=== PATIENT | male | born 1965 | race Caucasian/White ===

== ENCOUNTER 2016-08-18 18:35 | Inpatient (IN) | payer BC ==
[~2016-08-18] VITALS: Ht 175.3 cm; Wt 96.0 kg
[~2016-08-18 18:35] MED LIST: ACTOS30 MG PO; FLEXERIL5 MG PO; GLIPIZIDE10 MG PO; LEVO-T75 MCG PO; LOVASTATIN20 MG PO; METFORMIN HCL500 M1 PO; METFORMIN HCL500 MG PO; MOTRIN800 MG PO; NAPROXEN500 MG PO; PERCOCET 5/31 TABLET PO; PIOGLITAZONE HC45 MG PO; PRINIVIL20 MG PO
[2016-08-18 19:09] LABS: POINT-OF-CARE METER ID UU14100415; POINT-OF-CARE USER ID HMLKAV
[2016-08-18 19:51] LABS: CHLORIDE 104 mEq/L (99-109); POTASSIUM 4.3 mEq/L (3.7-5.4); SODIUM 136 mEq/L (136-147)
[2016-08-18 19:52] LABS: MAGNESIUM 1.8 mg/dL (1.3-2.7)
[2016-08-18 19:53] LABS: GLUCOSE 358 mg/dL (70-99)
[2016-08-18 19:55] LABS: ANION GAP 13 MEQ/L (2-14)
[2016-08-18 19:56] LABS: D-DIMER ELISA 0.16 mg/L FEU (< 0.57); PROTHROMBIN TIME 10.2 (9.2-11.2); PTT 26.2 (25-32)
[2016-08-18 19:57] LABS: GFR ESTIMATE (CALCULATED) > 59 mL/min/
[2016-08-18 19:58] LABS: UREA NITROGEN (BUN) 21 mg/dL (9-23)
[2016-08-18 19:59] LABS: EOSINOPHIL (%) 0.3 % (0-5); HEMATOCRIT 44.3 % (38.0-50.0); IMMATURE GRANULOCYTE (%) 0.7 % (0.0-0.7); IMMATURE GRANULOCYTE COUNT 0.1 K/uL; LYMPHOCYTE COUNT 1.5 K/uL (1.0-2.8); MCH 29.7 PG (29.0-34.0); MCHC 34.1 G/DL (30.0-36.0); MCV 87.2 FL (86-99); MEAN PLAT.VOLUME 9.7 uM^3 (9.0-12.4); MONOCYTE (%) 3.5 % (3-12); MONOCYTE COUNT 0.3 K/uL (0-0.8); NEUTROPHIL (%) 78.5 % (45-76); NEUTROPHIL COUNT 7.1 K/uL (1.8-6.4); PLATELET COUNT 213 K/uL (156-360); RBC DIS.WIDTH-CV 13.5 % (11.8-14.6); RBC DIS.WIDTH-SD 42.9 % (39-53); RED BLOOD COUNT 5.08 M/uL (4.00-5.50)
[2016-08-18 20:03] LABS: TROP-I INTERPRETATION NEGATIVE; TROPONIN-I < 0.01 ng/mL (0.0-0.30)
[2016-08-18] MEDS ORDERED: METOPROLOL TART50 MG PO (22:07)
[2016-08-18] MEDS ORDERED: EXCEDRIN MIGRA1 EAC3 PO (22:08)
[2016-08-18] MEDS ORDERED: ACTOS30 MG PO (22:09)
[2016-08-19 01:20] VITALS: BP 150/86
[2016-08-19 02:03] LABS: TROP-I INTERPRETATION NEGATIVE; TROPONIN-I 0.12 ng/mL (0.0-0.30)
[2016-08-19 08:19] VITALS: BP 123/75
[2016-08-19 09:21] LABS: ANION GAP 7 MEQ/L (2-14); CHLORIDE 100 MEQ/L (99-109); GFR ESTIMATE (CALCULATED) > 59 mL/min/; GLUCOSE 231 mg/dL (70-99); POTASSIUM 3.8 MEQ/L (3.7-5.4); SAMPLE HEMOLYSIS CHECK 0; SAMPLE ICTERIC CHECK 0; SAMPLE LIPEMIA CHECK 1; SODIUM 134 MEQ/L (136-147); UREA NITROGEN (BUN) 13 mg/dL (9-23)
[2016-08-19 09:33] LABS: TROP-I INTERPRETATION INDETERMINATE; TROPONIN-I 0.35 ng/mL (0.0-0.30)
[2016-08-19 12:03] VITALS: BP 116/70
[2016-08-19 12:26] LABS: POINT-OF-CARE METER ID UU13113700
[2016-08-19 15:57] VITALS: BP 118/71
[2016-08-19 20:00] VITALS: BP 125/69
[2016-08-19 21:39] LABS: POINT-OF-CARE METER ID UU13113831
[2016-08-19 23:49] VITALS: BP 109/70
[2016-08-20 04:47] VITALS: BP 129/77
[2016-08-20 07:17] VITALS: BP 120/77
[2016-08-20 07:31] LABS: HEMATOCRIT 43.9 % (38.0-50.0); MCH 29.6 PG (29.0-34.0); MCHC 33.9 G/DL (30.0-36.0); MCV 87.3 FL (86-99); MEAN PLAT.VOLUME 9.7 uM^3 (9.0-12.4); PLATELET COUNT 203 K/uL (156-360); RBC DIS.WIDTH-CV 13.9 % (11.8-14.6); RBC DIS.WIDTH-SD 43.5 % (39-53); RED BLOOD COUNT 5.03 M/uL (4.00-5.50)
[2016-08-20 07:32] LABS: WHITE BLOOD COUNT 5.8 K/uL (4.1-10.2)
[2016-08-20 07:55] VITALS: BP 125/78
[2016-08-20 08:37] LABS: POINT-OF-CARE METER ID UU13113831
[2016-08-20 11:26] VITALS: BP 129/74
[2016-08-20 21:32] VITALS: BP 110/64
[2016-08-20 21:48] LABS: POINT-OF-CARE METER ID UU13113698
[2016-08-20 23:04] VITALS: BP 97/54
[2016-08-21 04:41] VITALS: BP 107/60
[2016-08-21 06:43] LABS: EOSINOPHIL (%) 1.7 % (0-5); EOSINOPHIL COUNT 0.1 K/uL (0-0.3); HEMATOCRIT 44.5 % (38.0-50.0); IMMATURE GRANULOCYTE (%) 1.1 % (0.0-0.7); IMMATURE GRANULOCYTE COUNT 0.1 K/uL; LYMPHOCYTE COUNT 1.4 K/uL (1.0-2.8); MCH 29.4 PG (29.0-34.0); MONOCYTE (%) 9.8 % (3-12); MONOCYTE COUNT 0.5 K/uL (0-0.8); NEUTROPHIL (%) 58.2 % (45-76); NEUTROPHIL COUNT 2.7 K/uL (1.8-6.4); RBC DIS.WIDTH-CV 13.9 % (11.8-14.6); RBC DIS.WIDTH-SD 45.2 % (39-53); WHITE BLOOD COUNT 4.7 K/uL (4.1-10.2)
[2016-08-21 07:00] VITALS: BP 129/78
[2016-08-21 07:07] LABS: ANION GAP 9 MEQ/L (2-14); CHLORIDE 102 MEQ/L (99-109); GFR ESTIMATE (CALCULATED) > 59 mL/min/; GLUCOSE 187 mg/dL (70-99); POTASSIUM 4.4 MEQ/L (3.7-5.4); SAMPLE HEMOLYSIS CHECK 0; SAMPLE ICTERIC CHECK 0; SAMPLE LIPEMIA CHECK 0; SODIUM 138 MEQ/L (136-147); UREA NITROGEN (BUN) 10 mg/dL (9-23)
[2016-08-21 07:35] LABS: POINT-OF-CARE METER ID UU13113698
[2016-08-21 08:15] LABS: MEAN PLAT.VOLUME 10.6 uM^3 (9.0-12.4); PLAT.SUFFICIENCY DECREASED; USER ID CCL
[2016-08-21 08:16] LABS: PLATELET COUNT 27 K/uL (156-360)
[2016-08-21 11:30] VITALS: BP 121/78
[2016-08-21 13:08] LABS: HEMATOCRIT 42.5 % (38.0-50.0); MCH 29.5 PG (29.0-34.0); MCHC 33.6 G/DL (30.0-36.0); MCV 87.8 FL (86-99); RBC DIS.WIDTH-CV 13.9 % (11.8-14.6); RBC DIS.WIDTH-SD 44.5 % (39-53); RED BLOOD COUNT 4.84 M/uL (4.00-5.50); WHITE BLOOD COUNT 5.4 K/uL (4.1-10.2)
[2016-08-21 13:56] LABS: MEAN PLAT.VOLUME 10.8 uM^3 (9.0-12.4)
[2016-08-21 13:57] LABS: PLATELET COUNT 27 K/uL (156-360)
[2016-08-21 19:57] LABS: HEMATOCRIT 44.4 % (38.0-50.0); MCH 29.9 PG (29.0-34.0); MCHC 34.2 G/DL (30.0-36.0); MCV 87.2 FL (86-99); RBC DIS.WIDTH-CV 13.7 % (11.8-14.6); RBC DIS.WIDTH-SD 43.6 % (39-53); RED BLOOD COUNT 5.09 M/uL (4.00-5.50)
[2016-08-21 20:09] LABS: MEAN PLAT.VOLUME 10.7 uM^3 (9.0-12.4); PLATELET COUNT 36 K/uL (156-360)
[2016-08-21 20:13] LABS: INTER. NORMALIZED RATIO 1.1; PROTHROMBIN TIME 10.7 (9.2-11.2); PTT 28.9 (25-32)
[2016-08-21 20:19] LABS: D-DIMER LATEX NEGATIVE
[2016-08-21 20:26] LABS: SCHISTOCYTES NONE SEEN
[2016-08-21 20:32] LABS: ALKALINE PHOSPHATASE 75 IU/L (3-129); DIRECT BILIRUBIN 0.1 mg/dL (0.0-0.3); TOTAL BILIRUBIN 0.5 MG/DL (0.0-1.0)
[2016-08-21 20:45] LABS: FIBRINOGEN 331 MG/DL (160-450)
[2016-08-21 21:20] VITALS: BP 131/88
[2016-08-21 21:28] LABS: POINT-OF-CARE METER ID UU13113698
[2016-08-22 00:48] VITALS: BP 110/59
[2016-08-22 04:01] VITALS: BP 124/80
[2016-08-22 07:03] LABS: HEMATOCRIT 43.2 % (38.0-50.0); MCH 29.9 PG (29.0-34.0); MCV 87.8 FL (86-99); RBC DIS.WIDTH-CV 13.8 % (11.8-14.6); RBC DIS.WIDTH-SD 43.9 % (39-53); RED BLOOD COUNT 4.92 M/uL (4.00-5.50); WHITE BLOOD COUNT 5.6 K/uL (4.1-10.2)
[2016-08-22 07:55] VITALS: BP 128/78
[2016-08-22 08:07] LABS: MEAN PLAT.VOLUME 10.2 uM^3 (9.0-12.4)
[2016-08-22 08:15] LABS: PLATELET COUNT 51 K/uL (156-360)
[2016-08-22 11:26] LABS: HEMATOCRIT 43.9 % (38.0-50.0); MCH 29.8 PG (29.0-34.0); MCHC 34.2 G/DL (30.0-36.0); MCV 87.3 FL (86-99); RBC DIS.WIDTH-CV 13.8 % (11.8-14.6); RBC DIS.WIDTH-SD 43.9 % (39-53); RED BLOOD COUNT 5.03 M/uL (4.00-5.50); WHITE BLOOD COUNT 6.2 K/uL (4.1-10.2)
[2016-08-22 11:29] VITALS: BP 114/73
[2016-08-22 11:42] LABS: POINT-OF-CARE METER ID UU14174216; POINT-OF-CARE USER ID NUTSLF44
[2016-08-22 13:47] LABS: MEAN PLAT.VOLUME 10.4 uM^3 (9.0-12.4); PLATELET COUNT 50 K/uL (156-360)
[2016-08-22 14:46] LABS: Heparin Induced Plt Ab Negative (Negative)
[2016-08-22 16:01] LABS: UFH SRA Result Negative (Negative)
[2016-08-22 16:11] VITALS: BP 139/78
[2016-08-22 17:40] LABS: POINT-OF-CARE USER ID NUTSLF44
[2016-08-22 19:28] VITALS: BP 135/79
[2016-08-22 19:39] LABS: HEMATOCRIT 46.6 % (38.0-50.0); MCH 30.1 PG (29.0-34.0); MCHC 34.5 G/DL (30.0-36.0); MCV 87.3 FL (86-99); RBC DIS.WIDTH-CV 13.7 % (11.8-14.6); RBC DIS.WIDTH-SD 43.6 % (39-53); RED BLOOD COUNT 5.34 M/uL (4.00-5.50)
[2016-08-22 19:40] LABS: MEAN PLAT.VOLUME 10.8 uM^3 (9.0-12.4); PLATELET COUNT 71 K/uL (156-360)
[2016-08-23 01:35] VITALS: BP 106/70
[2016-08-23 04:07] VITALS: BP 134/79
[2016-08-23 06:33] LABS: HEMATOCRIT 45.2 % (38.0-50.0); MCHC 34.1 G/DL (30.0-36.0); MCV 87.9 FL (86-99); MEAN PLAT.VOLUME 10.8 uM^3 (9.0-12.4); PLATELET COUNT 76 K/uL (156-360); RBC DIS.WIDTH-CV 13.6 % (11.8-14.6); RED BLOOD COUNT 5.14 M/uL (4.00-5.50); WHITE BLOOD COUNT 6.2 K/uL (4.1-10.2)
[2016-08-23 06:57] LABS: GFR ESTIMATE (CALCULATED) > 59 mL/min/; UREA NITROGEN (BUN) 17 mg/dL (9-23)
[2016-08-23 07:35] LABS: POINT-OF-CARE METER ID UU14174216
[2016-08-23 08:44] VITALS: BP 125/74
[2016-08-23] MEDS ORDERED: CLOPIDOGREL75 MG PO (09:16)
[2016-08-23] MEDS ORDERED: ATORVASTATIN CA80 MG PO (09:16)
[2016-08-23] MEDS ORDERED: METOPROLOL TART50 MG PO (09:17)
[2016-08-23] MEDS ORDERED: ASPIR-LOW81 MG PO (09:17)
[2016-08-23] MEDS ORDERED: NITROSTAT0.4 MG SL (09:17)
[2016-08-23 11:07] VITALS: BP 119/85
== END 2016-08-23 11:40 | disposition home or self-care (01) | DRG 247 ==
LOC: EME 18:35 → 5WEST 08-19 00:11 → EDOF 08-19 00:11 → 5WEST 08-19 00:51 → 4EAST 08-20 14:21 → 5WEST 08-20 14:21 → 4EAST 08-20 20:57
PROVIDERS: Emergency Medicine; Family Medicine; Hospitalist; Internal Medicine; Internal Medicine Cardiovascular Disease; Internal Medicine Medical Oncology
DX: I21.4 Non-ST elevation (NSTEMI) myocardial infarction (principal); I25.110 Atherosclerotic heart disease of native coronary artery with unstable angina pectoris; I45.6 Pre-excitation syndrome; D69.59 Other secondary thrombocytopenia; T45.525A Adverse effect of antithrombotic drugs, initial encounter; E11.65 Type 2 diabetes mellitus with hyperglycemia; I10 Essential (primary) hypertension; E78.2 Mixed hyperlipidemia; E03.9 Hypothyroidism, unspecified; Z87.891 Personal history of nicotine dependence; E66.9 Obesity, unspecified; Z68.32 Body mass index [BMI] 32.0-32.9, adult
CPT/HCPCS: 71010; 80048; 80076; 82565; 82948; 83735; 84484; 84520; 85025; 85027; 85347; 85378; 85379; 85384; 85610; 85730; 86022 90; 86850; 86900; 86901; 93005; 99281; 99285; C1725; C1769; C1874; C1887; G0378; J0883; J1170; J1644; J1652; J1815; J2060; J2250; J2405; J3010; J3246; J7030; J7050

== ENCOUNTER 2017-01-26 10:21 | Emergency (ER) | payer OTHER ==
[~2017-01-26] VITALS: Ht 175.3 cm; Wt 102.2 kg
[~2017-01-26 10:21] MED LIST changes: +ASPIR-LOW81 MG PO; +ATORVASTATIN CA80 MG PO; +CLOPIDOGREL75 MG PO; +EXCEDRIN MIGRA1 EAC3 PO; +METOPROLOL TART50 MG PO; +NITROSTAT0.4 MG SL
[2017-01-26 11:24] LABS: HEMATOCRIT 45.7 % (38.0-50.0); MCHC 33.7 G/DL (30.0-36.0); MCV 86.1 FL (86-99); MEAN PLAT.VOLUME 9.4 uM^3 (9.0-12.4); PLATELET COUNT 229 K/uL (156-360); RBC DIS.WIDTH-CV 13.1 % (11.8-14.6); RBC DIS.WIDTH-SD 40.7 % (39-53); RED BLOOD COUNT 5.31 M/uL (4.00-5.50); WHITE BLOOD COUNT 6.2 K/uL (4.1-10.2)
[2017-01-26 11:37] LABS: CHLORIDE 105 mEq/L (99-109); POTASSIUM 4.8 mEq/L (3.7-5.4); SODIUM 138 mEq/L (136-147)
[2017-01-26 11:38] LABS: GLUCOSE 322 mg/dL (70-99)
[2017-01-26 11:40] LABS: ANION GAP 10 MEQ/L (2-14)
[2017-01-26 11:42] LABS: GFR ESTIMATE (CALCULATED) > 59 mL/min/
[2017-01-26 11:43] LABS: TROP-I INTERPRETATION NEGATIVE; TROPONIN-I < 0.01 ng/mL (0.0-0.30); UREA NITROGEN (BUN) 18 mg/dL (9-23)
[2017-01-26 15:09] LABS: TROP-I INTERPRETATION NEGATIVE; TROPONIN-I < 0.01 ng/mL (0.0-0.30)
[2017-01-26 15:55] VITALS: BP 95/66
== END 2017-01-26 15:56 | disposition home or self-care (01) ==
LOC: EME 10:21
PROVIDERS: Nurse Practitioner Family
DX: R07.9 Chest pain, unspecified (principal); E78.5 Hyperlipidemia, unspecified; I10 Essential (primary) hypertension; Z95.5 Presence of coronary angioplasty implant and graft; Z87.891 Personal history of nicotine dependence
CPT/HCPCS: 71020; 80048; 84484; 85027; 93005; 99281; 99284

== ENCOUNTER 2017-02-22 08:24 | Emergency (ER) | payer OTHER ==
[~2017-02-22] VITALS: Ht 175.3 cm; Wt 103.0 kg
[2017-02-22] MEDS ORDERED: FLOXIN OTIC SOLN5 ML LEFT EAR (08:54)
[2017-02-22 09:01] VITALS: BP 115/62
== END 2017-02-22 09:03 | disposition home or self-care (01) ==
LOC: EME 08:24
PROC: 09C1XZZ Extirpation of Matter from Left External Ear, External Approach (ICD-10-PCS; principal; 2017-02-22)
DX: T16.2XXA Foreign body in left ear, initial encounter (principal)
CPT/HCPCS: 99281; 99283

== ENCOUNTER 2017-06-01 09:50 | Day surgery (SDC) | payer OTHER ==
[~2017-06-01] VITALS: Ht 175.3 cm; Wt 103.0 kg
[~2017-06-01 09:50] MED LIST changes: +FLOXIN OTIC SOLN5 ML LEFT EAR; +JARDIANCE10 MG PO; +LANTUS 3 M100 UNITS1 SC
[2017-06-01 10:44] LABS: POINT-OF-CARE METER ID UU13113696
[2017-06-01 13:32] LABS: POINT-OF-CARE METER ID UU13113819
[2017-06-01 15:55] VITALS: BP 120/66
[2017-06-01 17:04] LABS: POINT-OF-CARE METER ID UU13113781; POINT-OF-CARE USER ID NUTSLF44
[2017-06-01 19:46] VITALS: BP 115/59
[2017-06-01 21:24] LABS: POINT-OF-CARE METER ID UU13113698
[2017-06-01 22:40] VITALS: BP 81/47
[2017-06-02 03:50] VITALS: BP 103/62
[2017-06-02 05:24] LABS: EOSINOPHIL (%) 1.3 % (0-5); EOSINOPHIL COUNT 0.1 K/uL (0-0.3); HEMATOCRIT 41.9 % (38.0-50.0); IMMATURE GRANULOCYTE (%) 0.9 % (0.0-0.7); IMMATURE GRANULOCYTE COUNT 0.1 K/uL; INSTRUMENT ABS NEUTROPHIL CT 4.6 K/uL; LYMPHOCYTE COUNT 1.3 K/uL (1.0-2.8); MCH 29.1 PG (29.0-34.0); MCHC 32.7 G/DL (30.0-36.0); MCV 89.1 FL (86-99); MEAN PLAT.VOLUME 9.5 uM^3 (9.0-12.4); MONOCYTE (%) 9.2 % (3-12); MONOCYTE COUNT 0.6 K/uL (0-0.8); NEUTROPHIL (%) 68.3 % (45-76); NEUTROPHIL COUNT 4.6 K/uL (1.8-6.4); PLATELET COUNT 218 K/uL (156-360); RBC DIS.WIDTH-CV 13.2 % (11.8-14.6); RBC DIS.WIDTH-SD 43.1 % (39-53); WHITE BLOOD COUNT 6.7 K/uL (4.1-10.2)
[2017-06-02 05:48] LABS: ANION GAP 6 MEQ/L (2-14); CHLORIDE 105 MEQ/L (99-109); GFR ESTIMATE (CALCULATED) > 59 mL/min/; GLUCOSE 117 mg/dL (70-99); POTASSIUM 4.1 MEQ/L (3.7-5.4); SAMPLE HEMOLYSIS CHECK 0; SAMPLE ICTERIC CHECK 0; SAMPLE LIPEMIA CHECK 0; SODIUM 138 MEQ/L (136-147); UREA NITROGEN (BUN) 17 mg/dL (9-23)
[2017-06-02 07:27] VITALS: BP 106/72
[2017-06-02 07:50] LABS: POINT-OF-CARE METER ID UU13113698; POINT-OF-CARE USER ID ENVKC36
== END 2017-06-02 10:10 | disposition home or self-care (01) ==
LOC: CATH 09:50 → 4EAST 14:02 → 2SOUTH 14:02 → ENRESERV 14:04 → 4EAST 15:25
PROVIDERS: Internal Medicine Cardiovascular Disease
DX: T82.855A Stenosis of coronary artery stent, initial encounter (principal); I25.119 Atherosclerotic heart disease of native coronary artery with unspecified angina pectoris; I10 Essential (primary) hypertension; E78.5 Hyperlipidemia, unspecified; E11.9 Type 2 diabetes mellitus without complications; Z87.891 Personal history of nicotine dependence; R11.2 Nausea with vomiting, unspecified
CPT/HCPCS: 80048; 82948; 85025; 85347; 93005; C1725; C1769; C1874; C1887; G0378; J1644; J1815; J2250; J2405; J2765; J3010; J7030

== ENCOUNTER 2017-12-17 05:10 | Observation (INO) | payer OTHER ==
[~2017-12-17] VITALS: Ht 175.3 cm; Wt 100.7 kg
[~2017-12-17 05:10] MED LIST changes: +BASAGLAR K100 UNIT/1 SC; -LANTUS 3 M100 UNITS1 SC; -PRINIVIL20 MG PO; +ZESTRIL40 MG PO
[2017-12-17 05:48] LABS: HEMATOCRIT 46.5 % (38.0-50.0); HEMOGLOBIN 15.9 G/DL (12.5-16.6); MCH 29.6 PG (29.0-34.0); MCHC 34.2 G/DL (30.0-36.0); MCV 86.6 FL (86-99); PLATELET COUNT 249 K/uL (156-360); RBC DIS.WIDTH-CV 13.9 % (11.8-14.6); RED BLOOD COUNT 5.37 M/uL (4.00-5.50); WHITE BLOOD COUNT 8.5 K/uL (4.1-10.2)
[2017-12-17 05:57] LABS: PTT 28.4 SEC (25-37)
[2017-12-17 06:00] LABS: ALBUMIN 4.5 g/dL (3.2-4.8); CHLORIDE 103 mEq/L (99-109); POTASSIUM 4.5 mEq/L (3.7-5.4); SODIUM 137 mEq/L (136-147)
[2017-12-17 06:03] LABS: GLUCOSE 242 mg/dL (70-99); TOTAL PROTEIN 7.4 g/dL (6.4-8.3)
[2017-12-17 06:05] LABS: TOTAL BILIRUBIN 0.8 mg/dL (0.0-1.0)
[2017-12-17 06:06] LABS: ALKALINE PHOSPHATASE 143 IU/L (3-129)
[2017-12-17 06:07] LABS: CREATININE 1.1 mg/dL (0.6-1.3); GFR ESTIMATE (CALCULATED) > 59 mL/min/ (58.99-99999)
[2017-12-17 06:08] LABS: AST (GOT) 15 IU/L (2-34); DIRECT BILIRUBIN 0.2 mg/dL (0.0-0.3); UREA NITROGEN (BUN) 24 mg/dL (9-23)
[2017-12-17 06:09] LABS: ALT (GPT) 29 IU/L (3-49)
[2017-12-17 06:10] LABS: LIPASE 36 U/L (1.0-51.0); TROP-I INTERPRETATION NEGATIVE; TROPONIN-I < 0.01 ng/mL (0.0-0.30)
[2017-12-17] MEDS ORDERED: GLUCOPHAGE XR,500 MG PO ×2 (09:03→09:07)
[2017-12-17] MEDS ORDERED: AMARYL4 MG PO (09:04)
[2017-12-17] MEDS ORDERED: NEURONTIN300 MG PO (09:04)
[2017-12-17] MEDS ORDERED: PLAVIX75 MG PO (09:06)
[2017-12-17] MEDS ORDERED: LIPITOR80 MG PO (09:06)
[2017-12-17] MEDS ORDERED: ADULT LOW DOSE81 M1 PO (09:09)
[2017-12-17 09:27] VITALS: BP 123/71
[2017-12-17 12:19] LABS: TROP-I INTERPRETATION NEGATIVE; TROPONIN-I < 0.01 ng/mL (0.0-0.30)
[2017-12-17 14:44] VITALS: BP 128/74
[2017-12-17 16:01] VITALS: BP 134/82
[2017-12-17 17:30] LABS: D-DIMER ELISA < 150.00 ng/mLDDU (<230)
[2017-12-17 18:04] LABS: TROP-I INTERPRETATION NEGATIVE; TROPONIN-I < 0.01 ng/mL (0.0-0.30)
[2017-12-17 19:30] VITALS: BP 136/81
[2017-12-18 00:12] VITALS: BP 119/72
[2017-12-18 03:18] VITALS: BP 114/69
[2017-12-18 07:33] VITALS: BP 120/68
[2017-12-18 12:03] VITALS: BP 100/56
[2017-12-18 16:11] VITALS: BP 125/61
[2017-12-18] MEDS ORDERED: Salonpas 4% Patch TD (17:12)
[2017-12-18] MEDS ORDERED: CYCLOBENZAPRINE10 MG PO (17:12)
[2017-12-18] MEDS ORDERED: TRAMADOL HCL50 MG PO (17:12)
[2017-12-18] MEDS ORDERED: PREDNISONE10 MG PO (17:12)
== END 2017-12-18 18:25 | disposition home or self-care (01) ==
LOC: EME 05:10 → EDOF 07:28 → ENRESERV 07:28 → 4SOUTH 07:28 → EDOF 07:28 → ENRESERV 07:48 → 4SOUTH 09:25
PROVIDERS: Emergency Medicine; Hospitalist; Nurse Practitioner Adult Health
DX: R07.9 Chest pain, unspecified (principal); M48.02 Spinal stenosis, cervical region; I25.10 Atherosclerotic heart disease of native coronary artery without angina pectoris; I45.6 Pre-excitation syndrome; M25.512 Pain in left shoulder; I10 Essential (primary) hypertension; E78.5 Hyperlipidemia, unspecified; Z82.49 Family history of ischemic heart disease and other diseases of the circulatory system; Z87.891 Personal history of nicotine dependence; E11.65 Type 2 diabetes mellitus with hyperglycemia; E11.40 Type 2 diabetes mellitus with diabetic neuropathy, unspecified; E03.9 Hypothyroidism, unspecified; Z85.828 Personal history of other malignant neoplasm of skin; Z79.4 Long term (current) use of insulin; Z88.8 Allergy status to other drugs, medicaments and biological substances
CPT/HCPCS: 71045; 71275; 72125; 73030; 80048; 80076; 82948; 83036; 83690; 84484; 85027; 85379; 85610; 85730; 93005; 99281; 99284; G0378; J1170; J1885; J2060; J2930; J7030

== ENCOUNTER 2018-02-05 05:36 | Day surgery (SDC) | payer OTHER ==
[~2018-02-05] VITALS: Ht 175.3 cm; Wt 102.0 kg
[~2018-02-05 05:36] MED LIST changes: +ADULT LOW DOSE81 M1 PO; +AMARYL4 MG PO; +CYCLOBENZAPRINE10 MG PO; +GLUCOPHAGE XR,500 MG PO; +LIPITOR80 MG PO; +NEURONTIN300 MG PO; +PLAVIX75 MG PO; +PREDNISONE10 MG PO; +Salonpas 4% Patch TD; +TRAMADOL HCL50 MG PO
[2018-02-05 06:46] VITALS: BP 130/70
[2018-02-05] MEDS ORDERED: PERCOCET 5/31 TABLET PO (10:35)
[2018-02-05] MEDS ORDERED: PROMETHAZINE HC50 M1 PO (10:35)
[2018-02-05 13:45] VITALS: BP 113/68
[2018-02-05 17:30] VITALS: BP 120/72
[2018-02-05 19:52] VITALS: BP 112/63
[2018-02-05 23:30] VITALS: BP 111/67
[2018-02-06 03:08] VITALS: BP 118/73
[2018-02-06 07:28] VITALS: BP 122/70
== END 2018-02-06 12:30 | disposition home or self-care (01) ==
LOC: SDC 05:36 → 2SOUTH 10:15 → ENRESERV 10:52 → 3EAST 14:00 → SDC 14:44 → 3EAST 02-06 12:30
PROVIDERS: Neurological Surgery
DX: M50.13 Cervical disc disorder with radiculopathy, cervicothoracic region (principal); G56.22 Lesion of ulnar nerve, left upper limb; I10 Essential (primary) hypertension; I25.2 Old myocardial infarction; Z95.5 Presence of coronary angioplasty implant and graft; E11.9 Type 2 diabetes mellitus without complications; Z79.4 Long term (current) use of insulin; E03.9 Hypothyroidism, unspecified; Z79.82 Long term (current) use of aspirin; Z79.02 Long term (current) use of antithrombotics/antiplatelets; Z87.891 Personal history of nicotine dependence; Z88.5 Allergy status to narcotic agent; Z88.8 Allergy status to other drugs, medicaments and biological substances
CPT/HCPCS: 72040; 76000; 82948; C1713; C1821; G0378; J0131; J0330; J0690; J1815; J2250; J2270; J2405; J2550; J2765; J3010; J3480

== ENCOUNTER 2018-03-01 18:23 | Emergency (ER) | payer OTHER ==
[~2018-03-01] VITALS: Ht 175.3 cm; Wt 104.2 kg
[~2018-03-01 18:23] MED LIST changes: +PROMETHAZINE HC50 M1 PO
[2018-03-01] MEDS ORDERED: BACTRIM,SEPT1 TABLET PO (21:05)
[2018-03-01 21:22] VITALS: BP 135/83
== END 2018-03-01 21:24 | disposition home or self-care (01) ==
LOC: EME 18:23
DX: T81.4XXA Infection following a procedure, initial encounter (principal); E78.5 Hyperlipidemia, unspecified; E03.9 Hypothyroidism, unspecified; I45.6 Pre-excitation syndrome; I25.2 Old myocardial infarction; Z79.82 Long term (current) use of aspirin; Z87.891 Personal history of nicotine dependence; Z87.01 Personal history of pneumonia (recurrent); Z85.828 Personal history of other malignant neoplasm of skin; Z88.8 Allergy status to other drugs, medicaments and biological substances
CPT/HCPCS: 99281; 99283